=== PATIENT | female | born 1985 | race African-American/Black ===

== ENCOUNTER 2018-12-11 21:17 | Emergency (ER) | payer MEDICARE ==
[~2018-12-11] VITALS: Ht 165.1 cm; Wt 54.5 kg
[2018-12-11] MEDS ORDERED: SODIUM CHLORIDE 0.9% 1,000 ML IV ONE (23:39)
[2018-12-11] MEDS ORDERED: KETOROLAC 30MG/ML VIAL IV ONE (23:45)
[2018-12-12 00:01] LABS: BASOPHILS % 0.1 % (0.0-2.0); EOSINOPHILS % 0.5 % (0.0-5.0); HEMATOCRIT. 40.7 % (36.0-48.0); HEMOGLOBIN. 13.9 g/dL (12.0-16.0); LYMPHOCYTES % 8.1 % (20.0-50.0); MEAN CORPUSCULAR HEMOGLOBIN 33.6 pg (28.0-32.0); MEAN CORPUSCULAR VOLUME 98.4 fL (81.0-99.0); MEAN PLATELET VOLUME 8.1 fl (7.4-10.4); MONOCYTES % 14.8 % (2.0-8.0); NEUTROPHILS % 76.5 % (40.0-76.0); PLATELET 132 x1000/uL (130-400); RED BLOOD CELL COUNT 4.13 mill/uL (4.2-5.4); RED CELL DISTRIBUTION WIDTH 12.9 % (11.6-14.6)
[2018-12-12 00:09] LABS: CHLORIDE 102 mEq/L (98-107)
[2018-12-12 00:17] LABS: CREATINE KINASE 43 IU/L (26-192)
[2018-12-12 00:37] LABS: CLARITY URINE TURBID (CLEAR); COLOR URINE YELLOW (YELLOW); KETONES URINE 2+ (NEGATIVE); LEUKOCYTE ESTERASE URINE 3+ (NEGATIVE); NITRITE URINE POSITIVE (NEGATIVE); OCCULT BLOOD URINE 2+ (NEGATIVE); PROTEIN URINE 1+ (NEGATIVE)
[2018-12-12] MEDS ORDERED: CEFTRIAXONE 1 G PREMIX 50 ML IV SCH (04:15)
[2018-12-12 05:10] VITALS: BP 110/75
== END 2018-12-12 05:18 | disposition home or self-care (01) ==
LOC: ER 21:17
DX: N12 Tubulo-interstitial nephritis, not specified as acute or chronic (principal)
CPT/HCPCS: 36415; 80053; 81003; 81025; 82550; 83690; 85025; 87077; 87086; 87186; 96361; 96365; 96375; 99283; J0696; J1885; J7030; Z7610

== ENCOUNTER 2019-05-31 15:01 | Inpatient (IN) | payer MEDICAID, MEDICARE ==
[~2019-05-31] VITALS: Ht 162.6 cm; Wt 51.3 kg
[2019-05-31] VITALS (13 sets, daily range): BP systolic 109–128; BP diastolic 70–86
[2019-05-31] MEDS ORDERED: SODIUM CHLORIDE 0.9% 1,000 ML IV ONE (15:47)
[2019-05-31 16:15] LABS: BASOPHILS % 0.4 % (0.0-2.0); EOSINOPHILS % 2.7 % (0.0-5.0); HEMATOCRIT. 44.8 % (36.0-48.0); HEMOGLOBIN. 15.1 g/dL (12.0-16.0); LYMPHOCYTES % 26.3 % (20.0-50.0); MEAN CORPUSCULAR HEMOGLOBIN 34.2 pg (28.0-32.0); MEAN CORPUSCULAR VOLUME 101.5 fL (81.0-99.0); MEAN PLATELET VOLUME 8.5 fl (7.4-10.4); MONOCYTES % 12.9 % (2.0-8.0); NEUTROPHILS % 57.7 % (40.0-76.0); PLATELET 136 x1000/uL (130-400); RED BLOOD CELL COUNT 4.42 mill/uL (4.2-5.4); RED CELL DISTRIBUTION WIDTH 14.2 % (11.6-14.6)
[2019-05-31 16:20] LABS: CHLORIDE 105 mEq/L (98-107)
[2019-05-31 16:26] LABS: HCG SCREEN NEGATIVE
[2019-05-31 16:28] LABS: ETHANOL BLOOD < 10 mg/dL
[2019-05-31 16:56] LABS: *AMPHETAMINES SCREEN URINE NEGATIVE (NEGATIVE); *BARBITURATES SCREEN URINE NEGATIVE (NEGATIVE); *BENZODIAZEPINES SCREEN URINE NEGATIVE (NEGATIVE); *COCAINE SCREEN URINE NEGATIVE (NEGATIVE); CANNABINOID URINE SCREEN PRESUMTIVE POSITIVE (NEGATIVE); METHADONE URINE SCREEN NEGATIVE (NEGATIVE); OPIATES URINE SCREEN NEGATIVE (NEGATIVE); PHENCYCLIDINE URINE SCREEN NEGATIVE (NEGATIVE)
[2019-05-31] MEDS ORDERED: ASPIRIN 81MG TABLET PO ONE (17:00)
[2019-05-31 17:41] LABS: CREATINE KINASE MB FRACTION 3.7 ng/mL (0.5-3.6)
[2019-05-31] MEDS ORDERED: ENOXAPARIN 60MG/0.6ML SYR SUBCUT ONE (18:15)
[2019-05-31] MEDS ORDERED: CLONIDINE 0.1MG TABLET PO PRN (21:45)
[2019-05-31] MEDS ORDERED: HYDROCODONE/ACETAMINOPHEN 5/325MG TABLET PO PRN (21:45)
[2019-05-31] MEDS ORDERED: ACETAMINOPHEN 650MG SUPP PR PRN (21:45)
[2019-06-01] VITALS (48 sets, daily range): BP systolic 90–133; BP diastolic 55–93
[2019-06-01 06:20] LABS: BASOPHILS % 0.4 % (0.0-2.0); EOSINOPHILS % 4.2 % (0.0-5.0); HEMATOCRIT. 38.1 % (36.0-48.0); LYMPHOCYTES % 54.3 % (20.0-50.0); MEAN CORPUSCULAR HEMOGLOBIN 34.5 pg (28.0-32.0); MEAN CORPUSCULAR VOLUME 100.7 fL (81.0-99.0); MEAN PLATELET VOLUME 8.6 fl (7.4-10.4); MONOCYTES % 13.6 % (2.0-8.0); NEUTROPHILS % 27.5 % (40.0-76.0); PLATELET 123 x1000/uL (130-400); RED BLOOD CELL COUNT 3.79 mill/uL (4.2-5.4); RED CELL DISTRIBUTION WIDTH 13.6 % (11.6-14.6)
[2019-06-01 06:31] LABS: CHLORIDE 103 mEq/L (98-107)
[2019-06-01 06:42] LABS: HDL CHOLESTEROL 58 mg/dL (40-59)
[2019-06-01 06:44] LABS: LDL CHOLESTEROL 66 mg/dL (5-100)
[2019-06-01] MEDS: ENOXAPARIN 40MG/0.4ML SYR SUBCUT SCH ×2 (08:33→08:42)
[2019-06-01] MEDS ORDERED: POTASSIUM CHLORIDE 20MEQ TABLET SR PO NR (10:45)
[2019-06-01 16:00] LABS: CREATINE KINASE 84 IU/L (26-192)
[2019-06-01 16:01] LABS: CREATINE KINASE MB FRACTION < 1.0 ng/mL (0.5-3.6)
[2019-06-02] VITALS (8 sets, daily range): BP systolic 90–119; BP diastolic 61–81
[2019-06-02] MEDS ORDERED: SODIUM CHLORIDE 0.9% 250 ML IV ONE (12:45)
[2019-06-02] MEDS: ENOXAPARIN 40MG/0.4ML SYR SUBCUT SCH (13:35)
== END 2019-06-02 17:00 | disposition home or self-care (01) | DRG 249 ==
LOC: ER 15:01 → MICUSO 17:03 → EDBEDREQ 17:04 → EDBEDREQSVC 17:04 → EDBEDREQ 17:14 → ENRESERV 20:01 → 3WST 06-01 11:57
PROVIDERS: ADMIT Internal Medicine; ATTEND Internal Medicine
DX: R19.7 Diarrhea, unspecified (principal); D69.6 Thrombocytopenia, unspecified; E87.6 Hypokalemia; F12.90 Cannabis use, unspecified, uncomplicated; Z20.828 Contact with and (suspected) exposure to other viral communicable diseases
CPT/HCPCS: 36415; 71045; 71275; 78452; 80053; 80061; 80305; 80320; 82550; 82553; 83880; 84439; 84443; 84484; 84703; 85025; 85379; 86140; 87635; 87804; 93005; 93017; 93306; 99291; A9500; J1650; J7030; G0480

== ENCOUNTER 2019-07-09 18:23 | Emergency (ER) | payer MEDICAID ==
[~2019-07-09] VITALS: Ht 165.1 cm; Wt 50.0 kg
[2019-07-09] MEDS ORDERED: ACETAMINOPHEN 325MG TABLET PO ONE (19:00)
[2019-07-09 20:15] LABS: BASOPHILS % 0.4 % (0.0-2.0); EOSINOPHILS % 3.5 % (0.0-5.0); HEMATOCRIT. 47.2 % (36.0-48.0); HEMOGLOBIN. 16.1 g/dL (12.0-16.0); LYMPHOCYTES % 33.2 % (20.0-50.0); MEAN CORPUSCULAR HEMOGLOBIN 35.1 pg (28.0-32.0); MEAN CORPUSCULAR VOLUME 102.7 fL (81.0-99.0); MEAN PLATELET VOLUME 8.1 fl (7.4-10.4); MONOCYTES % 10.4 % (2.0-8.0); NEUTROPHILS % 52.5 % (40.0-76.0); PLATELET 162 x1000/uL (130-400); RED BLOOD CELL COUNT 4.59 mill/uL (4.2-5.4); RED CELL DISTRIBUTION WIDTH 13.6 % (11.6-14.6)
[2019-07-09 20:21] LABS: CHLORIDE 104 mEq/L (98-107)
[2019-07-09 20:40] VITALS: BP 126/69
== END 2019-07-09 23:41 | disposition home or self-care (01) ==
LOC: ER 18:23
DX: R07.89 Other chest pain (principal); R06.02 Shortness of breath; D64.9 Anemia, unspecified; F17.290 Nicotine dependence, other tobacco product, uncomplicated
CPT/HCPCS: 36415; 71045; 80053; 83880; 84484; 85025; 93005; 99285; 99406

== ENCOUNTER 2019-12-03 21:29 | Emergency (ER) | payer MEDICAID ==
[~2019-12-03] VITALS: Ht 165.1 cm; Wt 47.2 kg
[2019-12-03 21:31] VITALS: BP 142/91
[2019-12-03] MEDS ORDERED: BACITRACIN ZINC OINT UDPKT TOP ONE (22:45)
[2019-12-03] MEDS ORDERED: LIDOCAINE 1%/EPI 1:100,000 10 ML VIAL IJ ONE (22:45)
== END 2019-12-04 00:41 | disposition home or self-care (01) ==
LOC: ER 21:29
DX: N75.0 Cyst of Bartholin's gland (principal); D64.9 Anemia, unspecified
CPT/HCPCS: 56420; 81025; 99283; J3490

== ENCOUNTER 2019-12-04 11:21 | Emergency (ER) | payer MEDICAID ==
[~2019-12-04] VITALS: Ht 165.1 cm; Wt 47.0 kg
[2019-12-04] MEDS ORDERED: IBUPROFEN 600MG TABLET PO ONE (12:15)
[2019-12-04 12:33] VITALS: BP 102/71
== END 2019-12-04 12:34 | disposition home or self-care (01) ==
LOC: ER 11:21
DX: R10.2 Pelvic and perineal pain (principal); D64.9 Anemia, unspecified
CPT/HCPCS: 99282

== ENCOUNTER 2019-12-06 20:02 | Emergency (ER) | payer MEDICAID ==
[~2019-12-06] VITALS: Ht 165.1 cm; Wt 47.0 kg
[2019-12-06 23:08] VITALS: BP 118/69
== END 2019-12-06 23:09 | disposition home or self-care (01) ==
LOC: ER 20:02
DX: Z48.00 Encounter for change or removal of nonsurgical wound dressing (principal); N75.0 Cyst of Bartholin's gland
CPT/HCPCS: 99281

== ENCOUNTER 2019-12-12 22:14 | Emergency (ER) | payer MEDICAID ==
[~2019-12-12] VITALS: Ht 165.1 cm; Wt 48.0 kg
[2019-12-12] MEDS ORDERED: TETANUS, DIPHTHERIA, PERTUSSIS VAC/PF 0.5ML (>7YR OLD) IM ONE (23:45)
[2019-12-13 00:07] VITALS: BP 124/76
== END 2019-12-13 00:08 | disposition home or self-care (01) ==
LOC: ER 22:29
DX: S01.411A Laceration without foreign body of right cheek and temporomandibular area, initial encounter (principal); Y04.2XXA Assault by strike against or bumped into by another person, initial encounter; Y93.89 Activity, other specified; Y92.89 Other specified places as the place of occurrence of the external cause; Z23 Encounter for immunization
CPT/HCPCS: 90471; 90715; 99283

== ENCOUNTER 2021-02-11 16:51 | Emergency (ER) | payer MEDICAID ==
[~2021-02-11] VITALS: Ht 165.1 cm; Wt 52.0 kg
[2021-02-11 17:17] VITALS: BP 100/61
[2021-02-11] MEDS ORDERED: ACETAMINOPHEN 325MG TABLET PO ONE (18:15)
[2021-02-11 19:31] LABS: CLARITY URINE TURBID (CLEAR); COLOR URINE YELLOW (YELLOW); KETONES URINE TRACE (NEGATIVE); LEUKOCYTE ESTERASE URINE 3+ (NEGATIVE); NITRITE URINE POSITIVE (NEGATIVE); OCCULT BLOOD URINE 1+ (NEGATIVE); PROTEIN URINE 2+ (NEGATIVE); SPECIFIC GRAVITY URINE 1.013 (1.005-1.030)
[2021-02-11] MEDS ORDERED: NITR-87 MT (19:45)
== END 2021-02-11 19:59 | disposition home or self-care (01) ==
LOC: ER 16:51
DX: J06.9 Acute upper respiratory infection, unspecified (principal); R50.9 Fever, unspecified; D64.9 Anemia, unspecified; Z20.822 Contact with and (suspected) exposure to COVID-19; Z79.899 Other long term (current) drug therapy
CPT/HCPCS: 81003; 81025; 87077; 87086; 87186; 99283; C9803; U0003; U0005

== ENCOUNTER 2021-08-16 09:43 | Emergency (ER) | payer MEDICAID ==
[~2021-08-16] VITALS: Ht 165.1 cm; Wt 54.0 kg
[~2021-08-16 09:43] MED LIST: NITR-87 MT
[2021-08-16] MEDS ORDERED: VISCOUS LIDOCAINE 2% 15 ML UDC MM STA (10:35)
[2021-08-16] MEDS ORDERED: IBUPROFEN 600MG TABLET PO ONE (10:45)
[2021-08-16] MEDS ORDERED: PHEN20SP MT (12:44)
[2021-08-16] MEDS ORDERED: IBUP-2029 MT (12:44)
[2021-08-16 14:00] VITALS: BP 110/72
== END 2021-08-16 14:02 | disposition home or self-care (01) ==
LOC: ER 09:43
DX: J02.9 Acute pharyngitis, unspecified (principal); R11.10 Vomiting, unspecified; D64.9 Anemia, unspecified; Z20.822 Contact with and (suspected) exposure to COVID-19
CPT/HCPCS: 87070; 87426; 87430; 93005; 99284; C9803

== ENCOUNTER 2021-08-17 23:08 | Emergency (ER) | payer MEDICAID ==
[~2021-08-17] VITALS: Ht 162.6 cm; Wt 54.0 kg
[~2021-08-17 23:08] MED LIST changes: +IBUP-2029 MT; +PHEN20SP MT
[2021-08-18] MEDS ORDERED: ONDANSETRON HCL 4MG/2ML INJ IV STA (03:30)
[2021-08-18] MEDS ORDERED: SODIUM CHLORIDE 0.9% 1,000 ML IV ONE (03:30)
[2021-08-18] MEDS ORDERED: KETOROLAC 30MG/ML VIAL IV STA (03:30)
[2021-08-18 05:17] LABS: HEMATOCRIT. 42.1 % (36.0-48.0); HEMOGLOBIN. 14.2 g/dL (12.0-16.0); MEAN CORPUSCULAR HEMOGLOBIN 33.7 pg (28.0-32.0); MEAN CORPUSCULAR VOLUME 99.9 fL (81.0-99.0); MEAN PLATELET VOLUME 7.7 fl (7.4-10.4); PLATELET 162 x1000/uL (130-400); RED BLOOD CELL COUNT 4.21 mill/uL (4.2-5.4); RED CELL DISTRIBUTION WIDTH 15.3 % (11.6-14.6)
[2021-08-18 05:36] LABS: CHLORIDE 112 mEq/L (98-107)
[2021-08-18 06:00] LABS: PLATELET ESTIMATE NORMAL
[2021-08-18] MEDS ORDERED: POTASSIUM CHLORIDE 20MEQ TABLET SR PO ONE (06:00)
[2021-08-18 06:54] VITALS: BP 108/60
== END 2021-08-18 06:58 | disposition home or self-care (01) ==
LOC: ER 23:08
DX: K52.9 Noninfective gastroenteritis and colitis, unspecified (principal); R11.2 Nausea with vomiting, unspecified; D64.9 Anemia, unspecified
CPT/HCPCS: 36415; 80053; 81025; 85025; 96361; 96374; 96375; 99284; J1885; J2405; J7030

== ENCOUNTER 2022-06-10 13:24 | Emergency (ER) | payer MEDICAID ==
[~2022-06-10] VITALS: Ht 165.1 cm; Wt 50.0 kg
[2022-06-10 13:30] VITALS: BP 113/76
[2022-06-10] MEDS ORDERED: CLIN-194 MT (13:57)
[2022-06-10] MEDS ORDERED: TOPUD PO (13:57)
[2022-06-10] MEDS ORDERED: CEFI400C4 PO (13:57)
== END 2022-06-10 14:30 | disposition home or self-care (01) ==
LOC: ER 13:24
DX: N75.0 Cyst of Bartholin's gland (principal)
CPT/HCPCS: 87591; 99283

== ENCOUNTER 2022-06-10 18:35 | Emergency (ER) | payer MEDICAID ==
[~2022-06-10 18:35] MED LIST changes: +CEFI400C4 PO; +CLIN-194 MT; +TOPUD PO
== END 2022-06-10 21:29 | disposition left against medical advice (07) ==
LOC: ER 18:35
DX: Z53.21 Procedure and treatment not carried out due to patient leaving prior to being seen by health care provider (principal)
CPT/HCPCS: 99281

== ENCOUNTER 2022-07-28 12:15 | Emergency (ER) | payer MEDICAID ==
[~2022-07-28] VITALS: Ht 165.1 cm; Wt 49.0 kg
[~2022-07-28 12:15] MED LIST changes: -CEFI400C4 PO; -CLIN-194 MT; -IBUP-2029 MT; -NITR-87 MT; -PHEN20SP MT; +THIA100T72 MT
[2022-07-28 12:26] VITALS: O2SAT 100
[2022-07-28] MEDS ORDERED: ACETAMINOPHEN 325MG TABLET PO ONE (12:45)
[2022-07-28] MEDS ORDERED: TOPUD PO (14:35)
[2022-07-28] MEDS ORDERED: VARE1TAB22 MT (14:35)
[2022-07-28] MEDS ORDERED: IBUP-1521 MT (14:35)
[2022-07-28 14:59] VITALS: BP 132/74; PULSE 74; RESP 16; TEMP 97.8
== END 2022-07-28 15:01 | disposition home or self-care (01) ==
LOC: ER 12:15
DX: S62.641A Nondisplaced fracture of proximal phalanx of left index finger, initial encounter for closed fracture (principal); M79.89 Other specified soft tissue disorders; W23.0XXA Caught, crushed, jammed, or pinched between moving objects, initial encounter; Y93.89 Activity, other specified; Y92.89 Other specified places as the place of occurrence of the external cause; Y99.8 Other external cause status
CPT/HCPCS: 29130; 73130; 99283